=== PATIENT | female | born 1965 | race Caucasian/White ===

== ENCOUNTER 2022-06-01 01:41 | Inpatient (IN) | payer OTHER ==
[2022-06-01 07:52] VITALS: BMI 42.5
[2022-06-01] MEDS ORDERED: Acetaminophen 325 MG TAB PO PRN (09:18)
[2022-06-01] MEDS ORDERED: Ondansetron PF 4 MG/2 ML Vial IVP PRN (09:18)
[2022-06-01] MEDS ORDERED: Communication Order-Pharmacy FS SCH (09:22)
[2022-06-01] MEDS: oxyCODONE/Acetaminophen 5 mg/325 mg Tablet PO PRN ×2 (12:10→20:15)
[2022-06-01] MEDS: tiZANidine HCl 4 MG TAB PO PRN ×2 (12:10→20:15)
[2022-06-01] MEDS ORDERED: Dextrose 50% Abboject 50 ML SYRINGE SLOW IVP PRN (12:21)
[2022-06-01] MEDS ORDERED: Dextrose 5% in Water 1,000 ML IV PRN (12:21)
[2022-06-01] MEDS ORDERED: HumaLOG 300 UNITS/3 ML VIAL SC PRN (12:21)
[2022-06-01] MEDS ORDERED: tiZANidine HCl 4 MG TAB PO SCH (14:00)
[2022-06-01] MEDS: guaiFENesin 200 MG TAB PO PRN (15:54)
[2022-06-01 16:24] LABS: Hemoglobin 12.3 g/dL (12.0-16.0); Platelet Count 253 thou/uL (130-400)
[2022-06-01] MEDS ORDERED: Budesonide 0.5 MG/2 ML NEB ONE (18:54)
[2022-06-01] MEDS: Budesonide 0.5 MG/2 ML NEB NEB SCH (19:30)
[2022-06-01] MEDS ORDERED: Enoxaparin Sodium 120 MG/0.8 ML SYRINGE SC SCH (21:00)
[2022-06-01] MEDS ORDERED: Enoxaparin Sodium 80 MG/0.8 ML SYRINGE SC SCH (21:00)
[2022-06-02] MEDS: oxyCODONE/Acetaminophen 5 mg/325 mg Tablet PO PRN ×3 (04:04→19:59)
[2022-06-02] MEDS: HumaLOG 300 UNITS/3 ML VIAL SC PRN ×3 (05:37→17:13)
[2022-06-02 06:06] LABS: #Eosinphils 0.2 thou/uL (0.0-0.7); #Monocytes 0.5 thou/uL (0.11-0.59); #Neutrophils 3.2 thou/uL (1.40-6.50); %Basophils 0.6 % (0.0-1.0); %Eosinophils 3.2 % (0.0-10.0); %Lymphocytes 33.4 % (21.0-51.0); %Monocytes 8.6 % (0.0-10.0); %Neutrophils 54.1 % (42.0-75.0); Hemoglobin 11.9 g/dL (12.0-16.0); Mean Corpuscular HGB CONC 34.7 g/dL (32.0-36.0); Mean Corpuscular Hemoglobin 30.8 pg (27.0-31.0); Mean Corpuscular Volume 88.7 fL (78.0-98.0); Mean Platelet Volume 8.2 fL (7.4-10.4); Platelet Count 190 thou/uL (130-400); RBC Distribution Width 11.3 % (11.5-14.5); Red Blood Cell (RBC) Count 3.87 mill/uL (4.20-5.40)
[2022-06-02 06:35] LABS: ALT (SGPT) 20 U/L (8-55); AST (SGOT) 18 U/L (5-34); Albumin 3.7 g/dL (3.5-5.0); Alkaline Phosphatase 117 U/L (40-110); Anion Gap 18 mmol/L (10-20); BUN (Urea Nitrogen) 21 mg/dL (9.8-20.1); Bilirubin, Total 0.3 mg/dL (0.2-1.2); Calc. Creatinine Clearance 99 mL/min (70-130); Calcium 9.1 mg/dL (7.8-10.44); Carbon Dioxide 18 mmol/L (22-29); Chloride 103 mmol/L (98-107); Estimated GFR 59; Globulin 3.5 g/dL (2.4-3.5); Glucose 298 mg/dL (70-105); Potassium 4.6 mmol/L (3.5-5.1); Protein, Total 7.2 g/dL (6.0-8.3); Sodium 134 mmol/L (136-145)
[2022-06-02] MEDS: Budesonide 0.5 MG/2 ML NEB NEB SCH ×2 (06:43→18:38)
[2022-06-02 06:44] LABS: Hemoglobin A1c 8.3 % (4.0-6.0)
[2022-06-02] MEDS: Ondansetron ODT 4 MG TAB PO PRN (08:44)
[2022-06-02] MEDS: Apixaban 5 MG TAB PO SCH ×2 (08:44→19:59)
[2022-06-02] MEDS: lamoTRIgine 100 MG TAB PO SCH (08:44)
[2022-06-02] MEDS: Furosemide 40 MG TAB PO SCH (08:45)
[2022-06-02] MEDS ORDERED: Insulin Glargine 30 UNITS/0.3 ML VIAL SC SCH ×2 (09:00→11:45)
[2022-06-02] MEDS ORDERED: Lisinopril 10 MG TAB PO SCH (09:00)
[2022-06-02] MEDS: tiZANidine HCl 4 MG TAB PO PRN ×2 (13:08→19:59)
[2022-06-02] MEDS ORDERED: hydrALAZINE 20 MG/ML VIAL SLOW IVP PRN (14:02)
[2022-06-02] MEDS: guaiFENesin 200 MG TAB PO PRN (19:59)
[2022-06-03] MEDS: oxyCODONE/Acetaminophen 5 mg/325 mg Tablet PO PRN ×2 (04:05→12:50)
[2022-06-03 06:04] LABS: #Eosinphils 0.1 thou/uL (0.0-0.7); #Lymphocytes 2.1 thou/uL (1.20-3.40); #Monocytes 0.5 thou/uL (0.11-0.59); #Neutrophils 3.8 thou/uL (1.40-6.50); %Basophils 0.5 % (0.0-1.0); %Eosinophils 1.9 % (0.0-10.0); %Lymphocytes 32.5 % (21.0-51.0); %Monocytes 7.6 % (0.0-10.0); %Neutrophils 57.6 % (42.0-75.0); Hemoglobin 11.5 g/dL (12.0-16.0); Mean Corpuscular HGB CONC 33.4 g/dL (32.0-36.0); Mean Corpuscular Hemoglobin 29.9 pg (27.0-31.0); Mean Corpuscular Volume 89.6 fL (78.0-98.0); Mean Platelet Volume 8.1 fL (7.4-10.4); Platelet Count 199 thou/uL (130-400); RBC Distribution Width 11.2 % (11.5-14.5); Red Blood Cell (RBC) Count 3.83 mill/uL (4.20-5.40); White Blood Cell (WBC) Count 6.5 thou/uL (4.8-10.8)
[2022-06-03 06:27] LABS: Anion Gap 13 mmol/L (10-20); BUN (Urea Nitrogen) 25 mg/dL (9.8-20.1); Calc. Creatinine Clearance 103 mL/min (70-130); Carbon Dioxide 24 mmol/L (22-29); Chloride 101 mmol/L (98-107); Potassium 3.9 mmol/L (3.5-5.1); Sodium 134 mmol/L (136-145)
[2022-06-03 06:28] LABS: ALT (SGPT) 15 U/L (8-55); AST (SGOT) 11 U/L (5-34); Albumin 3.6 g/dL (3.5-5.0); Alkaline Phosphatase 111 U/L (40-110); Bilirubin, Total 0.3 mg/dL (0.2-1.2); Calcium 9.2 mg/dL (7.8-10.44); Estimated GFR 62; Globulin 3.1 g/dL (2.4-3.5); Glucose 240 mg/dL (70-105); Protein, Total 6.7 g/dL (6.0-8.3)
[2022-06-03] MEDS: HumaLOG 300 UNITS/3 ML VIAL SC PRN ×2 (06:50→11:33)
[2022-06-03] MEDS: Furosemide 40 MG TAB PO SCH (08:52)
[2022-06-03] MEDS: Apixaban 5 MG TAB PO SCH (08:52)
[2022-06-03] MEDS ORDERED: Insulin Glargine 30 UNITS/0.3 ML VIAL SC SCH ×2 (09:00)
[2022-06-03] MEDS ORDERED: Lisinopril 20 MG TAB PO SCH (09:00)
[2022-06-03] MEDS: lamoTRIgine 100 MG TAB PO SCH (09:41)
[2022-06-03] MEDS: Ondansetron ODT 4 MG TAB PO PRN (09:41)
[2022-06-03] MEDS: Budesonide 0.5 MG/2 ML NEB NEB SCH (10:25)
[2022-06-03 13:58] VITALS: BP 172/89; TEMP 98.5
== END 2022-06-03 13:38 | disposition home or self-care (01) | DRG 301 ==
LOC: SURG A 06:53 → OBSVTOIN 06-03 10:42
PROVIDERS: ADMIT Student in an Organized Health Care Education/Training Program; ATTEND Student in an Organized Health Care Education/Training Program
DX: I82.511 Chronic embolism and thrombosis of right femoral vein (principal); Z20.822 Contact with and (suspected) exposure to COVID-19; E11.9 Type 2 diabetes mellitus without complications; E78.5 Hyperlipidemia, unspecified; K21.9 Gastro-esophageal reflux disease without esophagitis; F31.9 Bipolar disorder, unspecified; M51.26 Other intervertebral disc displacement, lumbar region; M43.16 Spondylolisthesis, lumbar region; Z90.49 Acquired absence of other specified parts of digestive tract; Z87.891 Personal history of nicotine dependence; Z79.4 Long term (current) use of insulin; Z79.899 Other long term (current) drug therapy
CPT/HCPCS: 36415; 36416; 80053; 83036; 85025; 94640; 96372; 96374; G0378; J0360; J1650; J1815; J7626; Q0162